=== PATIENT | female | born 1995 | race Caucasian/White ===

== ENCOUNTER 2018-04-13 19:13 | Emergency (ER) | payer SELFPAY ==
[2018-04-13 19:58] VITALS: BP 153/80; PULSE 108; RESP 16; TEMP 97.2; O2SAT 97
== END 2018-04-13 21:56 | disposition home or self-care (01) | DRG 881 ==
LOC: ED 19:13
DX: F32.9 Major depressive disorder, single episode, unspecified (principal); F41.9 Anxiety disorder, unspecified
CPT/HCPCS: 99282

== ENCOUNTER 2018-07-29 15:36 | Emergency (ER) | payer SELFPAY | END 2018-07-29 17:30 | disposition left against medical advice (07) | LOC: ED 15:36 ==